=== PATIENT | female | born 1995 | race Caucasian/White ===

== ENCOUNTER → 2017-11-09 17:23 | Outpatient (REF) | payer OTHER, SELFPAY ==
[2017-11-12 18:35] LABS: Neisseria gonorrhoeae, NAA Negative (Negative)
== END ==
LOC: LAB 17:23
PROVIDERS: Visit Provider Nurse Practitioner Obstetrics & Gynecology
DX: Z20.2 Contact with and (suspected) exposure to infections with a predominantly sexual mode of transmission (principal)
CPT/HCPCS: 87491; 87591

== ENCOUNTER → 2017-12-23 14:23 | Outpatient (REF) | payer OTHER, SELFPAY ==
[2017-12-27 06:03] LABS: Neisseria gonorrhoeae, NAA Negative (Negative)
== END ==
LOC: LAB 14:23
PROVIDERS: Visit Provider Nurse Practitioner Obstetrics & Gynecology
DX: N89.8 Other specified noninflammatory disorders of vagina (principal)
CPT/HCPCS: 87491; 87591

== ENCOUNTER → 2018-09-19 16:59 | Outpatient (CLI) | payer OTHER, SELFPAY ==
[2018-09-22 17:11] LABS: Neisseria gonorrhoeae, NAA Negative (Negative)
== END ==
LOC: LAB 09-20 13:36 → LAB.DROPOF 09-21 15:02
PROVIDERS: Visit Provider Nurse Practitioner Obstetrics & Gynecology
DX: R10.9 Unspecified abdominal pain (principal)
CPT/HCPCS: 87491; 87591

== ENCOUNTER 2020-12-29 10:54 | Emergency (ER) | payer OTHER, SELFPAY ==
[2020-12-29] VITALS (8 sets, daily range): BP systolic 119–150; BP diastolic 78–101; PULSE 56–97; RESP 16–20; TEMP 36.6; O2SAT 96–99; BMI 18.4
--- NOTE | 2020-12-29 11:45 | US_ITS ---
PROCEDURE: US ABDOMEN LIMITED CLINICAL INDICATION: RUQ pain COMPARISON: No exams were available for comparison FINDINGS: PANCREAS: Unremarkable. No obvious mass or abnormal fluid collection. No ductal dilatation LIVER: No focal liver lesions demonstrated. Homogeneous echogenicity. No intrahepatic biliary ductal dilatation evident. There is appropriate direction of blood flow within a non dilated portal vein RIGHT KIDNEY: Unremarkable. Normal size and echogenicity. No hydronephrosis GALLBLADDER: No gallstones, gallbladder wall thickening, pericholecystic fluid, or biliary dilatation. IMPRESSION: Unremarkable limited abdominal ultrasound as detailed above disc Dictated by: Luis M Zeng MD 12/29/2020 13:25 Luis M Zeng MD in [place] 12/29/2020 13:25
--- NOTE | 2020-12-29 11:58 | HMH.EDGENADL ---
ED Disposition Clinical Impression: Epigastric abdominal pain Fatigue Qualifiers: Encounter type: initial encounter Disposition: Home, Self-Care Condition on Discharge: Good Instructions: Gastritis Additional Instructions: Follow-up with your GEEK SQUAD AGENT regarding recent medication changes and symptoms related to it. Recommend daily use of famotidine [id number] for acid reduction and follow-up with your PCP within 2 to 3 days. Please return to the ED for any new or worsening symptoms. Prescriptions: Ondansetron [Zofran 4mg ODT] 4 mg PO TIDP PRN #9 tab PRN Reason: Vomiting Transmission Status: Received by [id number] Referrals: Socorro Mallory [Primary Care Provider] - Time of Disposition: 14:31 - Critical Care Critical Care Time: No Attestation: On 12/29/20, the high probability of a clinically significant, sudden or life threatening deterioration of the following system(s) required my full and direct attention, intervention and personal management. The time I documented below is in addition to time spent performing reported procedures but includes the following listed in this critical care notation. Medical Decision Making - Medical Records Medical records reviewed: Yes: I reviewed the patient's medical records. - Brayden Inquiry Pt receiving controlled substance: No Vital Signs: 12/29/20 10:55 12/29/20 11:32 12/29/20 12:56 Temperature Temperature Source Pulse Rate 81 73 Pulse Rate [Left Radial] 97 H Respiratory Rate 20 Blood Pressure 129/97 H 139/91 H Blood Pressure [Right Arm] 150/101 H Blood Pressure Mean 109 107 Blood Pressure Mean [Right Arm] 117 Blood Pressure Source [Right Arm] Automatic Cuff Blood Pressure Position Blood Pressure Position [Right Arm] Sitting 02 Sat by Pulse Oximetry 97 99 99 Oxygen Delivery Method Room Air 12/29/20 13:00 12/29/20 13:45 12/29/20 14:01 Temperature Temperature Source Pulse Rate 81 56 L 68 Pulse Rate [Left Radial] Respiratory Rate Blood Pressure 124/94 H 119/78 123/83 Blood Pressure [Right Arm] Blood Pressure Mean 102 Blood Pressure Mean [Right Arm] Blood Pressure Source [Right Arm] Blood Pressure Position Blood Pressure Position [Right Arm] 02 Sat by Pulse Oximetry 97 98 98 Oxygen Delivery Method 12/29/20 14:30 12/29/20 14:47 Temperature 98 F Temperature Source Oral Pulse Rate 68 78 Pulse Rate [Left Radial] Respiratory Rate 16 Blood Pressure 131/99 H 135/99 H Blood Pressure [Right Arm] Blood Pressure Mean Blood Pressure Mean [Right Arm] Blood Pressure Source [Right Arm] Blood Pressure Position Sitting Blood Pressure Position [Right Arm] 02 Sat by Pulse Oximetry 96 Oxygen Delivery Method Room Air - Lab Data Lab Results 12/29/20 11:58: WBC 7.8, RBC 4.96, Hgb 14.9, Hct 46.2, MCV 93.0, MCH 30.0, MCHC 32.2, RDW 12.9, Plt Count 325, MPV 7.5, Neut % (Auto) 71.3, Lymph % (Auto) 21.3, [place] % (Auto) 5.8, Eos % (Auto) 1.0, Baso % (Auto) 0.5, Neut # (Auto) 5.6, Lymph # (Auto) 1.7, [place] # (Auto) 0.5, Eos # (Auto) 0.1, Baso # (Auto) 0.0 12/29/20 11:58: Sodium 142, Potassium 3.9, Chloride 108 H, Carbon Dioxide 23, Anion Gap 14.9, BUN 6 L, Creatinine 0.50 L, Estimated Creat Clear 130, Estimated GFR 153, Est GFR ( Amer) 185, Glucose 116 H, Calcium 9.8, Total Bilirubin 0.8, AST 26, ALT 22, Alkaline Phosphatase 48, Total Protein 8.8 H, Albumin 5.5 H, Globulin 3.3 H, Albumin/Globulin Ratio 1.7 12/29/20 11:58: Urine Color Yellow, Urine Appearance Clear, Urine pH 7.5, Ur Specific [place] 1.015, Urine Protein Negative, Urine Glucose (UA) Negative, Urine Ketones Negative, Urine Blood Negative, Urine Nitrate Negative, Urine Bilirubin Negative, Urine Urobilinogen 0.2, Ur Leukocyte Esterase Negative, Urine RBC None, Urine WBC 3-5, Ur Squamous Epith Cells Occasional, Urine Bacteria None 12/29/20 11:58: Urine HCG, Qual Negative 12/29/20 11:58: Lipase 184 Result diagr
[2020-12-29 12:06] LABS: Microscopic, Urine URINE MICROSCOPIC (MICROSCOPIC)
[2020-12-29 12:12] LABS: Basophils % 0.5 % (0.1-2.0); Chloride 108 mmol/L (98-107); Eosinophils # 0.1 K/mm3 (0.0-0.4); Hematocrit 46.2 % (37.0-47.0); Hemoglobin 14.9 g/dL (12.2-16.2); Lymphocytes # 1.7 K/mm3 (0.7-4.5); Lymphocytes % 21.3 % (10-50); Mean Corpuscular HGB Conc 32.2 g/dL (31.8-35.4); Mean Platelet Volume 7.5 fl (7.4-10.4); Monocytes # 0.5 K/mm3 (0.1-1.0); Monocytes % 5.8 % (1.7-9.3); Neutrophils # 5.6 K/mm3 (1.8-7.8); Neutrophils % 71.3 % (37.0-80.0); Platelet Count 325 K/mm3 (142-424); Red Blood Count 4.96 M/mm3 (4.20-5.40); Red Cell Distribution Width 12.9 % (11.5-17.5); Sodium 142 mmol/L (136-145); White Blood Count 7.8 K/mm3 (4.8-10.8)
[2020-12-29 12:13] LABS: Potassium 3.9 mmoL/L (3.5-5.1)
[2020-12-29 12:15] LABS: Alanine Aminotransferase 22 U/L (12-78); Alkaline Phosphatase 48 U/L (38-126); Anion Gap 14.9 mEq/L (5-15); Aspartate Amino Transferase 26 U/L (14-36); Bilirubin,Total 0.8 mg/dl (0.2-1.3); Blood Urea Nitrogen 6 mg/dl (7-17); Carbon Dioxide 23 mmol/L (22.0-30.0); Creatinine Clearance Estimated 130 mL/min (50-200); Estimated Glomerular Filt Rate 153 ml/min (>60); GFR (African American) 185 ML/MIN (>60)
[2020-12-29 12:16] LABS: Albumin Level 5.5 g/dl (3.5-5.0); Albumin/Globulin Ratio 1.7 (1.1-1.8); Appearance,Urine CLEAR (Clear); Bilirubin,Urine Negative (Negative); Blood, Urine Negative (Negative); Calcium 9.8 mg/dl (8.4-10.2); Color,Urine YELLOW (Yellow); Globulin 3.3 g/dL (1.3-3.2); Glucose 116 mg/dl (74-100); Glucose,Urine (UA) Negative (Negative); Ketones,Urine Negative (Negative); Leukocyte Esterase,Urine Negative (Negative); Lipase 184 U/L (23-300); Nitrate,Urine Negative (Negative); PH,Urine 7.5 (5.0-8.5); Protein,Urine Negative (Negative); Specific Gravity, Urine 1.015 (1.005-1.030); Total Protein,Serum 8.8 g/dl (6.3-8.2); Urobilinogen,Urine 0.2 EU/dl (0.2)
[2020-12-29 12:17] LABS: Urine Pregnancy, HCG Qual. Negative (Negative)
[2020-12-29 12:33] LABS: Squamous Epithelial Cell,Urine Occasional #/hpf (0-5)
== END 2020-12-29 14:48 | disposition home or self-care (01) ==
PROVIDERS: Emergency Provider Student in an Organized Health Care Education/Training Program; PCP Physician Assistant
DX: R10.13 Epigastric pain (principal); R53.83 Other fatigue; F41.9 Anxiety disorder, unspecified; F17.210 Nicotine dependence, cigarettes, uncomplicated
CPT/HCPCS: 76705; 80053; 81001; 81025; 83690; 85025; 96365; 99283; J2405

== ENCOUNTER 2021-03-17 20:03 | Emergency (ER) | payer OTHER, SELFPAY ==
[2021-03-17 20:25] VITALS: BP 122/85; PULSE 98; RESP 17; TEMP 36.9; O2SAT 100; BMI 17.6
[2021-03-17 20:35] VITALS: BMI 17.6
[2021-03-17 20:41] LABS: Microscopic, Urine URINE MICROSCOPIC (MICROSCOPIC)
[2021-03-17 21:11] LABS: Urine Pregnancy, HCG Qual. Positive (Negative)
--- NOTE | 2021-03-17 21:16 | US_ITS ---
PROCEDURE INFORMATION: Exam: US , Transvaginal Exam date and time: 03/17/2021 9:16 PM Age: 25 years old Clinical indication: Lmp or gestational age (in weeks): Lmp February 15, 2021; Other: Vaginal bleeding and cramping; ; Patient HX: Positive urine preg test. Beta hcg 181. Bleeding and cramping all day. ; Additional info: Bleeding 4 weeks TECHNIQUE: Imaging protocol: Real-time transvaginal obstetrical ultrasound of the maternal pelvis with image documentation. Transvaginal imaging was used for better evaluation of the fetus, adnexa, and/or cervix. [place] [facility] [place]/05/[place] 2:28 PM FINDINGS: Gestation: No IUP. Normal appearance of the uterus. Endometrial thickness is normal. Normal appearance of the bilateral ovaries. Endometrial thickness is 3 mm. IMPRESSION: Unremarkable limited exam. Lack of IUP compatible with too early to see, missed , or potentially ectopic. Clinical correlation recommended.
[2021-03-17 21:30] LABS: Lipase 132 U/L (23-300)
[2021-03-17 21:31] LABS: Alanine Aminotransferase 26 U/L (12-78); Albumin Level 4.9 g/dl (3.5-5.0); Albumin/Globulin Ratio 1.8 (1.1-1.8); Alkaline Phosphatase 50 U/L (38-126); Amylase 65 U/L (30-110); Anion Gap 14.6 mEq/L (5-15); Aspartate Amino Transferase 26 U/L (14-36); Bilirubin,Total 0.5 mg/dl (0.2-1.3); Blood Urea Nitrogen 6 mg/dl (7-17); Calcium 9.1 mg/dl (8.4-10.2); Carbon Dioxide 23 mmol/L (22.0-30.0); Chloride 106 mmol/L (98-107); Creatinine Clearance Estimated 104 mL/min (50-200); Estimated Glomerular Filt Rate 124 ml/min (>60); GFR (African American) 150 ML/MIN (>60); Globulin 2.8 g/dL (1.3-3.2); Glucose 97 mg/dl (74-100); Potassium 3.6 mmoL/L (3.5-5.1); Sodium 140 mmol/L (136-145); Total Protein,Serum 7.7 g/dl (6.3-8.2)
[2021-03-17 21:33] LABS: Basophils % 0.2 % (0.1-2.0); Eosinophils # 0.1 K/mm3 (0.0-0.4); Eosinophils % 0.4 % (0.1-12.0); Hemoglobin 12.7 g/dL (12.2-16.2); Lymphocytes # 1.8 K/mm3 (0.7-4.5); Lymphocytes % 12.1 % (10-50); Mean Corpuscular HGB Conc 31.8 g/dL (31.8-35.4); Mean Corpuscular Hemoglobin 29.4 pg (27.0-31.2); Mean Corpuscular Volume 92.4 fl (81-99); Mean Platelet Volume 7.4 fl (7.4-10.4); Monocytes # 0.7 K/mm3 (0.1-1.0); Monocytes % 4.4 % (1.7-9.3); Neutrophils # 12.4 K/mm3 (1.8-7.8); Neutrophils % 82.8 % (37.0-80.0); Platelet Count 287 K/mm3 (142-424); Red Blood Count 4.32 M/mm3 (4.20-5.40); White Blood Count 14.9 K/mm3 (4.8-10.8)
[2021-03-17 21:37] LABS: C-Reactive Protein < 0.3 mg/L (0-4)
[2021-03-17 21:47] LABS: HCG,Quantitative 181 mIU/ml (0-5.42); Procalcitonin 0.044 ng/mL (0.0-2.0)
--- NOTE | 2021-03-17 22:11 | HMH.EDPREG ---
ED Disposition Clinical Impression: Qualifiers: Weeks of gestation: less than 8 weeks Qualified Code(s): Z3A.01 - Less than 8 weeks gestation of Disposition: Home, Self-Care Condition on Discharge: Good Instructions: DI for Vaginal Bleeding Additional Instructions: call ob in am Referrals: Socorro Mallory [Primary Care Provider] - Antonio Grijalva MD [Staff Physician] - Ana Harding MD [Staff Physician] - - Critical Care Critical Care Time: No Attestation: On 03/17/21, the high probability of a clinically significant, sudden or life threatening deterioration of the following system(s) required my full and direct attention, intervention and personal management. The time I documented below is in addition to time spent performing reported procedures but includes the following listed in this critical care notation. Medical Decision Making - Medical Records Medical records reviewed: Yes: I reviewed the patient's medical records. - Brayden Inquiry Pt receiving controlled substance: No Vital Signs: 03/17/21 20:25 Temperature 98.4 F Temperature Source Oral Pulse Rate [Right] 98 H Respiratory Rate 17 Blood Pressure [Right Arm] 122/85 Blood Pressure Mean [Right Arm] 97 Blood Pressure Source [Right Arm] Automatic Cuff 02 Sat by Pulse Oximetry 100 Oxygen Delivery Method Room Air - Lab Data Lab results reviewed: Yes: I reviewed the patient's lab results. Lab Results 03/17/21 20:13: Urine Color Yellow, Urine Appearance Clear, Urine pH 7.0, Ur Specific [place] 1.015, Urine Protein Negative, Urine Glucose (UA) Negative, Urine Ketones Negative, Urine Blood 2+, Urine Nitrate Negative, Urine Bilirubin Negative, Urine Urobilinogen 0.2, Ur Leukocyte Esterase Negative, Urine RBC 3-5, Urine WBC Occasional, Ur Squamous Epith Cells 3-5, Urine Bacteria None 03/17/21 20:13: Urine HCG, Qual Positive 03/17/21 21:10: WBC 14.9 H, RBC 4.32, Hgb 12.7, Hct 40.0, MCV 92.4, MCH 29.4, MCHC 31.8, RDW 12.0, Plt Count 287, MPV 7.4, Neut % (Auto) 82.8 H, Lymph % (Auto) 12.1, [place] % (Auto) 4.4, Eos % (Auto) 0.4, Baso % (Auto) 0.2, Neut # (Auto) 12.4 H, Lymph # (Auto) 1.8, [place] # (Auto) 0.7, Eos # (Auto) 0.1, Baso # (Auto) 0.0, ESR 19 03/17/21 21:10: Sodium 140, Potassium 3.6, Chloride 106, Carbon Dioxide 23, Anion Gap 14.6, BUN 6 L, Creatinine 0.60, Estimated Creat Clear 104, Estimated GFR 124, Est GFR ( Amer) 150, Glucose 97, Calcium 9.1, Total Bilirubin 0.5, AST 26, ALT 26, Alkaline Phosphatase 50, C-Reactive Protein < 0.3, Total Protein 7.7, Albumin 4.9, Globulin 2.8, Albumin/Globulin Ratio 1.8, Amylase 65, Procalcitonin 0.044, HCG, Quant 181 H 03/17/21 21:10: Lipase 132 Result diagrams: 03/17/21 21:10 03/17/21 21:10 Orders (Tests/Meds): ED MEDICATIONS Generic Name Dose Route Start Last Admin Trade Name Freq PRN Reason Stop Dose Admin Sodium Chloride 1,000 mls @ 999 mls/hr 03/17/21 21:30 03/17/21 21:32 Sod Chlor 0.9% 1000ml Bag IV 03/17/21 22:30 999 mls/hr .Q1H1M RAHEL Administration Rho Immune Globulin 0 unit 03/17/21 21:16 Rho(D) Immune Globulin 1,500 Unit Syringe IM 04/16/21 21:15 NEEDED PRN For Rh Pre/ scrn resu ORDERS Category Date Time Status Rhogam Stat BBK 03/17/21 21:34 Received - US Data US Images: Pelvis ED US Reviewed: Yes: I have viewed radiologist's interpretation Preliminary Findings: Normal/NAD (too early) Medical Decision Narrative: too early to determine will ask pt to call ob in am HPI - General Chief complaint: Vaginal Bleeding Stated complaint: 4 weeks preg abdominal pain and bleeding Time Seen by Provider: 03/17/21 20:50 Mode of Arrival: Family Vehicle Source of Information: Patient, Significant Other, Medical Record Limitations: No Limitations Description of Symptoms (Recalled from ER Triage Doc. by RN): Pt c/o low ABD/suprapubic pain that radiates to bilateral low back that began ~1330 today. Pt report s
[2021-03-17 22:20] LABS: Erythrocyte Sedimentation Rate 19 mm/hr (0-20)
[2021-03-17 22:30] LABS: Appearance,Urine CLEAR (Clear); Bilirubin,Urine Negative (Negative); Blood, Urine 2+ (Negative); Color,Urine YELLOW (Yellow); Glucose,Urine (UA) Negative (Negative); Ketones,Urine Negative (Negative); Leukocyte Esterase,Urine Negative (Negative); Nitrate,Urine Negative (Negative); Protein,Urine Negative (Negative); Specific Gravity, Urine 1.015 (1.005-1.030); Urobilinogen,Urine 0.2 EU/dl (0.2)
[2021-03-17 22:33] LABS: WBC,Urine Occasional #/hpf (0-3)
[2021-03-17 23:30] VITALS: BP 130/78; PULSE 92; RESP 16; TEMP 36.9; O2SAT 98
== END 2021-03-17 23:33 | disposition home or self-care (01) ==
PROVIDERS: Emergency Provider Emergency Medicine; PCP Physician Assistant
DX: O20.9 Hemorrhage in early pregnancy, unspecified (principal); Z3A.01 Less than 8 weeks gestation of pregnancy; F17.210 Nicotine dependence, cigarettes, uncomplicated
CPT/HCPCS: 36415; 76817; 80053; 81001; 81025; 82150; 83690; 84145; 84702; 85025; 85651; 86140; 96365; 99282; 99283

== ENCOUNTER → 2021-03-19 09:25 | Outpatient (CLI) | payer OTHER, SELFPAY ==
[2021-03-19 11:16] LABS: HCG,Quantitative 82 mIU/ml (0-5.42)
== END ==
PROVIDERS: Visit Provider Nurse Practitioner Obstetrics & Gynecology
DX: Z34.90 Encounter for supervision of normal pregnancy, unspecified, unspecified trimester (principal)
CPT/HCPCS: 36415; 84702

== ENCOUNTER 2021-04-22 08:45 | Emergency (ER) | payer OTHER, SELFPAY ==
[2021-04-22 08:55] VITALS: PULSE 93; RESP 18; TEMP 36.8; O2SAT 99; BMI 19.0
[2021-04-22 09:05] VITALS: BP 133/87; PULSE 106; RESP 16; TEMP 36.9; O2SAT 100; BMI 18.4
--- NOTE | 2021-04-22 09:21 | XR_ITS ---
PROCEDURE: XR KNEE LT 3V CLINICAL INDICATION: pain COMPARISON: No exams were available for comparison FINDINGS: No fracture or dislocation. No lytic or blastic change. There is normal mineralization. The joint spaces are well-preserved. No significant degenerative/arthritic changes. No erosive changes evident. Other findings:None. IMPRESSION: No acute findings. Dictated by: Luis M Zeng MD 04/22/2021 11:15 Luis M Zeng MD in [place] 04/22/2021 11:15
--- NOTE | 2021-04-22 10:19 | HMH.EDUTC ---
[facility] [place] Clinical Impression: Contusion of left knee Qualifiers: Encounter type: initial encounter Qualified Code(s): S80.02XA - Contusion of left knee, initial encounter Disposition: Home, Self-Care Condition on Discharge: Good Instructions: DI for Contusion, DI for Knee Pain Additional Instructions: Rest the extremity, apply ice for 15 minutes as tolerated three or four times per day, Elevate the extremity as tolerated while you are resting. Take ibuprofen for pain. I sent in a prescription to your pharmacy. Follow up with Dr. Barrera (orthopedics) if you continue to have symptoms after a couple days of resting and taking ibuprofen. I put in a referral but you need to call his office and schedule an appointment. Follow up with your regular doctor. GO TO THE ER FOR ANY WORSENING SYMPTOMS Prescriptions: Ibuprofen [Ibuprofen 600mg Tablet] 600 mg PO Q6HP PRN #30 tab PRN Reason: Mild Pain Transmission Status: Received by [facility] [place] [id number] Referrals: Socorro Mallory [Primary Care Provider] - Luis Barrera MD [Staff Physician] - Time of Disposition: 10:21 Medical Decision Making - Medical Records Medical records reviewed: No: I reviewed the patient's medical records. - Brayden Inquiry Pt receiving controlled substance: No Vital Signs: 04/22/21 08:55 04/22/21 09:05 04/22/21 10:27 Temperature 98.2 F 98.4 F 98.5 F Temperature Source Oral Oral Pulse Rate 100 H Pulse Rate [Right Radial] 93 H 106 H Respiratory Rate 18 16 14 Blood Pressure 129/85 Blood Pressure [Right Arm] 133/87 Blood Pressure Mean [Right Arm] 102 02 Sat by Pulse Oximetry 99 100 Oxygen Delivery Method Room Air - Radiology Data #1 Image(s): Knee Image Reviewed: Yes I reviewed the patient's radiology image, Yes I have reviewed radiologist's interpretation Preliminary Findings: No Fracture Seen PROCEDURE: XR KNEE LT 3V CLINICAL INDICATION: pain COMPARISON: No exams were available for comparison FINDINGS: No fracture or dislocation. No lytic or blastic change. There is normal mineralization. The joint spaces are well-preserved. No significant degenerative/arthritic changes. No erosive changes evident. Other findings:None. IMPRESSION: No acute findings. Dictated by: Luis M Zeng MD 04/22/2021 11:15 Luis M Zeng MD in [place] 04/22/2021 11:15 [facility] [place] - General Stated complaint: AO [id number] @0700 injured r knee Time Seen by Provider: 04/22/21 09:05 Mode of Arrival: Ambulatory Source of Information: Patient Limitations: No Limitations Description of Symptoms (Recalled from Triage Doc. by RN): pt states he hit her L knee cap on her bedframe last . and felt a popping sensation. HEENT Symptoms (Recalled from RN notes): No Resp Symptoms (Recalled from RN notes): No Skin Symptoms (Recalled from RN notes): No MS Symptoms (Recalled from RN notes): Yes (L knee pain) Functional Status (Recalled from RN notes): na - History of Present Illness Provider Complaint: She accidentily bumper her left knee into her bed frame last night. She has had left knee pain and swelling since then. Walking and bearing weight makes her pain worse. The knee has not felt unstable. - Related Data Home Medications Medication Instructions Recorded Confirmed omeprazole 10 mg capsule,delayed 10 mg PO DAILY 12/17/20 03/19/21 release hydroxyzine pamoate 25 mg capsule 25 mg PO cap 03/19/21 03/19/21 Previous Rx's Medication Instructions Recorded vits no.126-ferrous fum 1 tab PO DAILY #30 tab 12/17/20 28 mg iron-folic acid 800 mcg tablet bupropion HCl 150 mg 24 hr tablet, 150 mg PO DAILY #30 tab 03/19/21 extended release Ibuprofen [Ibuprofen 600mg 600 mg PO Q6HP PRN #30 tab 04/22/21 Tablet] Allergies Allergy/AdvReac Type Severity Reaction Status Date / Time No Known Drug Intolerances Allergy Unknown NA Verified 04/22/21 09:04 - Worker's Comp Is this a
[2021-04-22 10:27] VITALS: BP 129/85; PULSE 100; RESP 14; TEMP 36.9
== END 2021-04-22 10:35 | disposition home or self-care (01) ==
LOC: ER 08:50 → UTC 08:57
PROVIDERS: Emergency Provider Nurse Practitioner Family; PCP Physician Assistant
DX: S80.02XA Contusion of left knee, initial encounter (principal); W22.03XA Walked into furniture, initial encounter; Y92.013 Bedroom of single-family (private) house as the place of occurrence of the external cause; F41.9 Anxiety disorder, unspecified
CPT/HCPCS: 29505; 73562; 99202; G0463

== ENCOUNTER 2021-07-28 10:14 | Emergency (ER) | payer OTHER, SELFPAY ==
[2021-07-28 11:28] VITALS: BP 126/87; PULSE 82; RESP 18; TEMP 36.8; O2SAT 98; BMI 18.3
--- NOTE | 2021-07-28 11:51 | HMH.EDUTC ---
[facility] [place] Clinical Impression: Ear pain Disposition: Home, Self-Care Condition on Discharge: Good Instructions: DI for Ear Pain-Adult, Fluticasone Nasal [place] Additional Instructions: *Monitor Temp, Over the counter Motrin or Tylenol as directed/as needed Tylenol every 4 hours and Motrin every 6 hours (as long as your family doctor has told you that you can take it) for fever or pain. and straight to ER if unable to lower temp less than 101.0 after medication given *Sleep elevated *Humidifier/Vaporizer *Flonase 2 sprays in each nostril daily but be aware that it may take 2-3 days before you notice improvement Follow up IMMEDIATELY for new or worsening symptoms or no Noticeable improvement over the next 48-72 hours. 911 for difficulty breathing or swallowing Prescriptions: Fluticasone Propionate [Flonase 50mcg nasal spray 16gm] 1 spr NS DAILY #1 each Transmission Status: Pending to [id number] Referrals: Socorro Mallory [Primary Care Provider] - As needed Time of Disposition: 11:59 Medical Decision Making - Brayden Inquiry Pt receiving controlled substance: No Brayden was queried for this patient: No Vital Signs: 07/28/21 11:28 Temperature 98.2 F Temperature Source Oral Pulse Rate [Left] 82 Respiratory Rate 18 Blood Pressure [Right Arm] 126/87 Blood Pressure Mean [Right Arm] 100 02 Sat by Pulse Oximetry 98 [facility] [place] - General Stated complaint: lt ear pain Time Seen by Provider: 07/28/21 11:51 Mode of Arrival: Ambulatory Source of Information: Patient Limitations: No Limitations Description of Symptoms (Recalled from Triage Doc. by RN): pt c/o bilateral ear aches x2 days. HEENT Symptoms (Recalled from RN notes): Yes (bilateral ear aches) Resp Symptoms (Recalled from RN notes): No Skin Symptoms (Recalled from RN notes): No MS Symptoms (Recalled from RN notes): No Functional Status (Recalled from RN notes): na - History of Present Illness Provider Complaint: Patient states that she has been having pain in her left ear States that she has chronic ear problems so she her daughter was having pain in her ears so she came in to get checked too - Related Data Home Medications Medication Instructions Recorded Confirmed omeprazole 10 mg capsule,delayed 10 mg PO DAILY 12/17/20 03/19/21 release hydroxyzine pamoate 25 mg capsule 25 mg PO cap 03/19/21 03/19/21 Previous Rx's Medication Instructions Recorded vits no.126-ferrous fum 1 tab PO DAILY #30 tab 12/17/20 28 mg iron-folic acid 800 mcg tablet bupropion HCl 150 mg 24 hr tablet, 150 mg PO DAILY #30 tab 03/19/21 extended release Ibuprofen [Ibuprofen 600mg 600 mg PO Q6HP PRN #30 tab 04/22/21 Tablet] Fluticasone Propionate [Flonase 1 spr NS DAILY #1 each 07/28/21 50mcg nasal spray 16gm] Allergies Allergy/AdvReac Type Severity Reaction Status Date / Time No Known Drug Intolerances Allergy Unknown NA Verified 04/22/21 09:04 - Worker's Comp Is this a Worker's Comp case?: No [facility] History - Hepatitis A Screen Drug use history?: No High risk sexual behaviors?: No History of sexually transmitted infection?: No Currently employed?: No Childcare worker?: No Do you have indoor plumbing?: Yes Do you have electricity?: Yes Attestation statement:: This patient has been screened for Hepatitis A risk factors. 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
[2021-07-28 12:10] VITALS: BP 126/87; PULSE 82; RESP 18; TEMP 36.8
== END 2021-07-28 12:40 | disposition home or self-care (01) ==
PROVIDERS: Emergency Provider Nurse Practitioner; PCP Physician Assistant
DX: H92.02 Otalgia, left ear (principal); F41.9 Anxiety disorder, unspecified; F17.210 Nicotine dependence, cigarettes, uncomplicated
CPT/HCPCS: 99202; G0463

== ENCOUNTER → 2021-09-22 10:25 | Outpatient (CLI) | payer OTHER, SELFPAY ==
[2021-09-22 12:40] LABS: Chloride 102 mmol/L (98-107); Sodium 135 mmol/L (136-145)
[2021-09-22 12:41] LABS: Potassium 3.6 mmoL/L (3.5-5.1)
[2021-09-22 12:43] LABS: Basophils % 0.4 % (0.1-2.0); Blood Urea Nitrogen 8 mg/dl (7-17); Eosinophils % 0.2 % (0.1-12.0); Hematocrit 42.7 % (37.0-47.0); Hemoglobin 13.4 g/dL (12.2-16.2); Lymphocytes # 0.3 K/mm3 (0.7-4.5); Lymphocytes % 10.8 % (10-50); Mean Corpuscular HGB Conc 31.4 g/dL (31.8-35.4); Mean Corpuscular Hemoglobin 30.6 pg (27.0-31.2); Mean Corpuscular Volume 97.4 fl (81-99); Mean Platelet Volume 8.3 fl (7.4-10.4); Monocytes # 0.4 K/mm3 (0.1-1.0); Monocytes % 12.9 % (1.7-9.3); Neutrophils # 2.4 K/mm3 (1.8-7.8); Neutrophils % 75.7 % (37.0-80.0); Platelet Count 231 K/mm3 (142-424); Red Blood Count 4.38 M/mm3 (4.20-5.40); Red Cell Distribution Width 13.5 % (11.5-17.5); White Blood Count 3.1 K/mm3 (4.8-10.8)
[2021-09-22 12:44] LABS: Anion Gap 11.6 mEq/L (5-15); Calcium 9.3 mg/dl (8.4-10.2); Carbon Dioxide 25 mmol/L (22.0-30.0); Estimated Glomerular Filt Rate 153 ml/min (>60); GFR (African American) 185 ML/MIN (>60); Glucose 88 mg/dl (74-100)
[2021-09-22 13:24] LABS: HCG,Quantitative 28230 mIU/ml (0-5.42)
== END ==
PROVIDERS: Visit Provider Nurse Practitioner Obstetrics & Gynecology
DX: Z01.818 Encounter for other preprocedural examination (principal); U07.1 COVID-19; N92.6 Irregular menstruation, unspecified; O02.1 Missed abortion
CPT/HCPCS: 36415; 80048; 84702; 85025; 86850; C9803; U0003; U0005

== ENCOUNTER 2021-09-23 12:17 | Day surgery (SDC) | payer OTHER, SELFPAY ==
[2021-09-22 13:04] VITALS: BMI 18.0
[2021-09-23] VITALS (9 sets, daily range): BP systolic 120–144; BP diastolic 68–105; PULSE 70–102; RESP 16–18; TEMP 36.1–36.9; O2SAT 96–100
--- NOTE | 2021-09-23 14:49 | HMH.OPNOTE ---
Date of procedure: 09/23/21 Pre-op Diagnosis:: Missed Post-op Diagnosis:: Missed Procedure performed:: Dilation and evacuation with [place] suction Surgeon:: Antonio Grijalva MD LIFE ADVISOR:: Other (Gregory Bray) Anesthesia: LMA Estimated blood loss (mL): 100 Clinical Note:: She is a 25-year-old at 7 weeks gestational age with a missed . Ultrasound in my office showed no fetus but a large gestational sac with blood in the lower segment. As result of that she was offered dilation evacuation. The entire sac was 4 cm in size. Operative findings:: She had an anteverted bulky uterus. The size was consistent with the 7 weeks gestational age. Operative note:: She was taken to the operating room where LMA anesthesia was found to be adequate. She is prepped and draped normal sterile fashion in the lithotomy position. Weighted speculum placed in vagina and the anterior lip of the cervix was grasped with a tenaculum. Rodrigez dilators used to dilate the cervix up to approximately 9 mm. Then using a 9 mm curved [place] suction curette I evacuated the uterine contents. This was followed by gentle curettage. She tolerated the procedure well and was taken to the recovery room in excellent condition in excellent condition. All sponge, instrument and needle counts were correct. The estimated blood loss was approximately 100 cc. Condition: stable Disposition: PACU Specimens:: Products of conception Complications:: None
--- NOTE | 2021-09-23 15:11 | P.PN_ITS ---
[facility] Anesthesia Checklist - Patient Identification Patient Identification: Arm Band, Verbal (Name & ) - Structural Data Admitted From: Home Planned Operative Procedure/s: D&E Consent for Planned Operative Procedure(s) Verified: Yes Verified Documents: Surgical Consent - NPO Status Verified Time NPO: 00:00 - Chart Verification Results Verified: CBC - Additional verifications Anesthesia Reactions: No Hx Blood Transfusions: No Blood Transfusion Reaction: No - Airway Assessment C-Spine Mobility Assessed: Yes TMJ Mobility Assessed: Yes Dentition: Poor Dentition - Neurological Assessment Level of Consciousness: Awake, Alert, Appropriate - Anesthesia Plan Anesthesia Risk discussed: Yes Anesthesia Plan: Verified Anesthesia Type: General [facility] History I have reviewed the patient's past medical history: Yes Medical History: Reports:: Anxiety Denies:: Cancer, Depression, Diabetes Mellitus Type 1, Diabetes Mellitus Type 2, Internal Pacemaker, MRSA, Seizures *Have you ever received a pneumonia vaccine?: No *Have you received a flu vaccine this season?: No Other Medical History: Denies: Blood Transfusion Reaction Anesthesia experience/problems:: none Other Surgeries: Yes: . No: Pacemaker Amputation: No Fractures: No - *Social History Last grade of school completed: High school graduate Smoking Status: Former smoker Tobacco Type: cigarettes # Packs/Day (cigarettes): 1 #Yrs smoked (if former smoker): 8 Smoking End Date: 08/14/21 Alcohol Intake: never Alcohol Intake Frequency:: other Substance Use Type: denies use *Occupational Status:: unemployed Housing: house Household Members: family *Travel in the last 8 weeks: None - Psychiatric History Pschychiatric History:: Reports:: Anxiety Denies:: Depression Family Hx:: Coronary Artery Disease, Diabetes, Hypertension, Stroke 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
--- NOTE | 2021-09-23 15:13 | P.PN_ITS ---
[facility] Anesthesia Record Part I Intake, IV Amount: 500 Estimated blood loss (mL): 100 Urine output (mL): 0 Blood Pressure: 140/92 SaO2: 99 Pulse Rate: 84 Respiratory Rate: 18 Temperature: 97.0 F Patient is:: Drowsy Stable to PACU at:: 15:10
== END 2021-09-23 16:00 | disposition home or self-care (01) ==
LOC: OR 12:19
PROVIDERS: PCP Physician Assistant; Visit Provider Nurse Practitioner Obstetrics & Gynecology
PROC: (CPT 59812; principal; 2021-09-23 14:00)
DX: O02.1 Missed abortion (principal); F41.9 Anxiety disorder, unspecified; Z82.49 Family history of ischemic heart disease and other diseases of the circulatory system; Z83.3 Family history of diabetes mellitus; Z82.3 Family history of stroke
CPT/HCPCS: 59812; 96374

== ENCOUNTER → 2022-03-03 10:54 | Outpatient (CLI) | payer OTHER, SELFPAY ==
[2022-03-03 12:07] LABS: HCG,Quantitative 554 mIU/ml (0-5.42)
== END ==
PROVIDERS: Nurse Practitioner Obstetrics & Gynecology; Visit Provider Obstetrics & Gynecology
DX: Z32.01 Encounter for pregnancy test, result positive (principal); O02.1 Missed abortion
CPT/HCPCS: 36415; 84702; 86900; 86901

== ENCOUNTER 2022-10-10 16:49 | Emergency (ER) | payer OTHER, SELFPAY ==
--- NOTE | 2022-10-10 17:01 | HMH.EDAMS ---
Discharge Plan Disposition Chief Complaint: Abdominal Pain Prescriptions Prescriptions: No Action omeprazole 20 mg capsule,delayed release(DR/EC) 20 mg PO hydroxyzine pamoate 25 mg capsule 25 mg PO DAILY Label Comments: TAKE 1 CAPSULE BY MOUTH TWICE DAILY NEEDED FOR ANXIETY vit [id number] 1 EACH tablet 1 tab PO DAILY oxycodone-acetaminophen 1 EACH tablet 1 tab PO Q4-6H PRN (Reason: Severe Pain) Qty: 6 0RF ibuprofen 600 MG tablet 600 mg PO Q6HP PRN (Reason: Mild Pain) Qty: 30 0RF Referrals Follow up/Referrals: Provider,Referral, MD [Primary Care Provider] - See instructions Instructions Patient Instructions: DI for Acute Abdominal Pain Discharge ED Provider: Toribio Cummins Altered Mental Status HPI General Chief Complaint: Abdominal Pain Stated Complaint: Sever Abd Pain Time Seen by Provider: 10/10/22 16:58 History of Present Illness HPI narrative: The patient presents to the emergency department complaining of lower abdominal pain. She states that she had her last menstrual period on August 31 and has missed a period and thinks she may be . She denies any bleeding. She does feel nauseated without vomiting and denies any diarrhea or fevers. Related Data Home Medications Medication Instructions Recorded Confirmed hydroxyzine pamoate 25 mg capsule 25 mg PO DAILY Anxiety 03/19/21 03/03/22 vits no.126-ferrous fum 1 tab PO DAILY Supplement 09/22/21 03/03/22 28 mg iron-folic acid 800 mcg tablet omeprazole 20 mg capsule,delayed 20 mg PO 03/03/22 03/03/22 release Previous Rx's Medication Instructions Recorded ibuprofen 600 mg tablet 600 mg PO Q6HP PRN Mild Pain #30 04/22/21 tabs oxycodone-acetaminophen 5 mg-325 1 tab PO Q4-6H PRN Severe Pain #6 09/23/21 mg tablet tabs Allergies Allergy/AdvReac Type Severity Reaction Status Date / Time No Known Drug Intolerances Allergy Unknown NA Verified 10/07/21 09:03 [facility] Disclaimer: The information contained in this section may have been updated after the patient was seen, as this information can be updated by other users. Social History Smoking Status: Never smoker second hand exposure: No alcohol intake: never substance use type: denies use current occupational status: unemployed Travel in the last 8 weeks: None household members: family housing: house current occupational exposures/hazards: No caffeine: Yes ROS Obtained: Yes All systems reviewed & no additional complaints except as documented Physical Exam General General appearance: alert Head Head exam: atraumatic Eye Eye exam: Present normal appearance; Absent scleral icterus or jaundice ENT ENT exam: Present normal exam Neck Neck exam: Present normal inspection and full ROM; Absent tenderness or meningismus Chest Chest inspection: Present normal inspection and symmetric chest wall rise; Absent tenderness Respiratory Respiratory exam: Present normal lung sounds bilaterally; Absent respiratory distress or accessory muscle use Cardiovascular Cardiovascular exam: Present regular rate, normal rhythm and normal heart sounds Abdominal Exam Abdominal exam: Present soft and normal bowel sounds; Absent distention, tenderness, heel tap sign, Gallardo's sign, Rovsing's sign, tenderness at McBurney's Point or mass External exam: Present normal external exam Speculum exam: Present normal speculum exam Bimanual exam: Present adnexal tenderness (Mild right-sided); Absent cervical motion tenderness Expanded Exam OB exam: Absent tissue present in vagina or vulvar erythema External exam: Present normal Speculum exam: Present cervical OS closed Extremities Exam Extremities exam: Present normal inspection and full ROM Back Exam Back exam: Present normal inspection; Absent tenderness, CVA tenderness (R) or CVA tenderness (L) Neurological Exam Neurological exam: Present alert and oriented X3 Ps
[2022-10-10 17:04] VITALS: BP 123/95; PULSE 89; RESP 14; TEMP 36.7; O2SAT 100; BMI 20.3
[2022-10-10 17:12] LABS: Microscopic, Urine URINE MICROSCOPIC (MICROSCOPIC)
[2022-10-10 17:29] LABS: Basophils # 0.1 K/mm3 (0-0.2); Basophils % 0.9 % (0.1-2.0); Chloride 108 mmol/L (98-107); Eosinophils # 0.1 K/mm3 (0.0-0.4); Eosinophils % 1.3 % (0.1-12.0); Hematocrit 42.1 % (37.0-47.0); Hemoglobin 13.8 g/dL (12.2-16.2); Lymphocytes # 2.4 K/mm3 (0.7-4.5); Lymphocytes % 24.4 % (10-50); Mean Corpuscular HGB Conc 32.8 g/dL (31.8-35.4); Mean Corpuscular Hemoglobin 29.9 pg (27.0-31.2); Mean Corpuscular Volume 91.4 fl (81-99); Mean Platelet Volume 7.7 fl (7.4-10.4); Monocytes # 0.5 K/mm3 (0.1-1.0); Monocytes % 4.7 % (1.7-9.3); Neutrophils # 6.7 K/mm3 (1.8-7.8); Neutrophils % 68.7 % (37.0-80.0); Platelet Count 352 K/mm3 (142-424); Potassium 3.3 mmoL/L (3.5-5.1); Red Blood Count 4.61 M/mm3 (4.20-5.40); Red Cell Distribution Width 13.7 % (11.5-17.5); Sodium 140 mmol/L (136-145); White Blood Count 9.8 K/mm3 (4.8-10.8)
[2022-10-10 17:32] LABS: Alanine Aminotransferase 16 U/L (12-78); Alkaline Phosphatase 40 U/L (38-126); Anion Gap 10.3 mEq/L (5-15); Aspartate Amino Transferase 25 U/L (14-36); Bilirubin,Total 0.3 mg/dl (0.2-1.3); Blood Urea Nitrogen 7 mg/dl (7-17); Calcium 8.7 mg/dl (8.4-10.2); Carbon Dioxide 25 mmol/L (22.0-30.0); Creatinine Clearance Estimated 143 mL/min (50-200); Estimated Glomerular Filt Rate 152 ml/min (>60); GFR (African American) 183 ML/MIN (>60); Glucose 98 mg/dl (74-100); Lipase 222 U/L (23-300)
[2022-10-10 17:33] LABS: Appearance,Urine CLEAR (Clear); Bilirubin,Urine Negative (Negative); Blood, Urine Negative (Negative); Color,Urine YELLOW (Yellow); Glucose,Urine (UA) Negative (Negative); Ketones,Urine Negative (Negative); Leukocyte Esterase,Urine Negative (Negative); Nitrate,Urine Negative (Negative); Protein,Urine Negative (Negative); Specific Gravity, Urine >= 1.030 (1.005-1.030); Urobilinogen,Urine 0.2 EU/dl (0.2)
[2022-10-10 17:33] LABS: Albumin Level 4.6 g/dl (3.5-5.0); Albumin/Globulin Ratio 1.4 (1.1-1.8); Globulin 3.3 g/dL (1.3-3.2); Total Protein,Serum 7.9 g/dl (6.3-8.2)
[2022-10-10 17:35] LABS: HCG Qualitative, Serum Positive (Negative)
--- NOTE | 2022-10-10 17:44 | US_ITS ---
PROCEDURE INFORMATION: Exam: US , Transvaginal Exam date and time: 10/10/2022 6:15 PM Age: 26 years old Clinical indication: complicated by abdominal or pelvic pain; Right lower quadrant; First trimester (<14 weeks 0 days); Gestational age or lmp: 6w3d; ; Patient HX: Rlq pain-- pos test-- [facility] [place] [id number]--; Additional info: . Pelvic pain, R/O ectopic TECHNIQUE: Imaging protocol: Real-time transvaginal obstetrical ultrasound of the maternal pelvis with image documentation. Transvaginal imaging was used for better evaluation of the fetus, adnexa, and/or cervix. COMPARISON: US OB TRANSVAGINAL 03/17/2021 9:39 PM FINDINGS: Gestation: There is an intrauterine gestational sac containing identifiable yolk sac but no pole. MATERNAL: Adnexa: There is a 1.9 cm dilated vascular structure in the right adnexa adjacent to the right ovary. Maternal ovaries appear unremarkable. No free fluid seen in the pelvis. IMPRESSION: 1. Early intrauterine gestation without identifiable pole. Viability can not be confirmed 2. 1.9 cm dilated vascular structure in the right adnexa which could represent a dilated vessel or aneurysm. Attention on follow-up studies indicated.
--- NOTE | 2022-10-10 17:45 | PC.NURSE ---
called for us tech for transvaginal US
[2022-10-10 17:52] LABS: WBC,Urine Occasional #/hpf (0-3)
[2022-10-10 18:11] LABS: HCG,Quantitative 3622 mIU/ml (0-5.42)
[2022-10-10 19:11] VITALS: BP 122/85; PULSE 94; O2SAT 98
[2022-10-10 19:14] VITALS: BP 134/71; PULSE 89; RESP 14; TEMP 36.7; O2SAT 98
== END 2022-10-10 19:21 | disposition home or self-care (01) ==
PROVIDERS: Emergency Provider Emergency Medicine
DX: O26.891 Other specified pregnancy related conditions, first trimester (principal); R10.30 Lower abdominal pain, unspecified; Z3A.01 Less than 8 weeks gestation of pregnancy
CPT/HCPCS: 76817; 80053; 81001; 83690; 84702; 84703; 85025; 99285

== ENCOUNTER → 2022-10-12 12:17 | Outpatient (CLI) | payer OTHER, SELFPAY ==
[2022-10-12 14:31] LABS: HCG,Quantitative 5576 mIU/ml (0-5.42)
[2022-10-13 11:14] LABS: Progesterone 7.9 ng/mL (.)
== END ==
PROVIDERS: Visit Provider Obstetrics & Gynecology
DX: O26.891 Other specified pregnancy related conditions, first trimester (principal); R10.2 Pelvic and perineal pain
CPT/HCPCS: 36415; 84144; 84702

== ENCOUNTER 2022-10-13 18:38 | Emergency (ER) | payer OTHER, SELFPAY ==
[2022-10-13 18:38] VITALS: BP 152/108; PULSE 87; RESP 16; TEMP 37; O2SAT 99; BMI 18.8
[2022-10-13 19:59] LABS: Microscopic, Urine URINE MICROSCOPIC (MICROSCOPIC)
[2022-10-13 20:01] LABS: Appearance,Urine CLEAR (Clear); Bilirubin,Urine Negative (Negative); Blood, Urine Negative (Negative); Color,Urine YELLOW (Yellow); Glucose,Urine (UA) Negative (Negative); Ketones,Urine Negative (Negative); Leukocyte Esterase,Urine Negative (Negative); Nitrate,Urine Negative (Negative); PH,Urine 6.5 (5.0-8.5); Protein,Urine Negative (Negative); Specific Gravity, Urine <= 1.005 (1.005-1.030); Urobilinogen,Urine 0.2 EU/dl (0.2)
[2022-10-13 20:10] LABS: Basophils # 0.1 K/mm3 (0-0.2); Basophils % 0.8 % (0.1-2.0); Eosinophils # 0.1 K/mm3 (0.0-0.4); Eosinophils % 0.5 % (0.1-12.0); Hematocrit 43.3 % (37.0-47.0); Hemoglobin 14.4 g/dL (12.2-16.2); Lymphocytes # 1.7 K/mm3 (0.7-4.5); Lymphocytes % 11.6 % (10-50); Mean Corpuscular HGB Conc 33.3 g/dL (31.8-35.4); Mean Corpuscular Volume 93.2 fl (81-99); Mean Platelet Volume 7.8 fl (7.4-10.4); Monocytes # 0.6 K/mm3 (0.1-1.0); Monocytes % 4.3 % (1.7-9.3); Neutrophils # 12.1 K/mm3 (1.8-7.8); Neutrophils % 82.8 % (37.0-80.0); Platelet Count 409 K/mm3 (142-424); Red Blood Count 4.65 M/mm3 (4.20-5.40); Red Cell Distribution Width 13.6 % (11.5-17.5); White Blood Count 14.6 K/mm3 (4.8-10.8)
[2022-10-13 20:12] LABS: Chloride 108 mmol/L (98-107); Potassium 3.3 mmoL/L (3.5-5.1); Sodium 142 mmol/L (136-145)
[2022-10-13 20:14] LABS: Amylase 67 U/L (30-110); Blood Urea Nitrogen 7 mg/dl (7-17); Creatinine Clearance Estimated 165 mL/min (50-200); Estimated Glomerular Filt Rate 196 ml/min (>60); GFR (African American) 237 ML/MIN (>60)
[2022-10-13 20:15] LABS: Alanine Aminotransferase 20 U/L (12-78); Albumin Level 4.9 g/dl (3.5-5.0); Albumin/Globulin Ratio 1.4 (1.1-1.8); Alkaline Phosphatase 40 U/L (38-126); Anion Gap 13.3 mEq/L (5-15); Aspartate Amino Transferase 26 U/L (14-36); Bilirubin,Total 0.4 mg/dl (0.2-1.3); Calcium 9.4 mg/dl (8.4-10.2); Carbon Dioxide 24 mmol/L (22.0-30.0); Globulin 3.4 g/dL (1.3-3.2); Glucose 129 mg/dl (74-100); Lipase 110 U/L (23-300); Total Protein,Serum 8.3 g/dl (6.3-8.2)
[2022-10-13 20:30] VITALS: BP 115/84; PULSE 88; O2SAT 100
[2022-10-13 20:30] LABS: HCG,Quantitative 7678 mIU/ml (0-5.42)
[2022-10-13 21:00] VITALS: BP 121/91; PULSE 103; O2SAT 99
--- NOTE | 2022-10-13 22:15 | PC.NURSE ---
Rounded on pt. Pt notified that we have critical cases at this time and we will be back with them as soon as possible.
--- NOTE | 2022-10-13 22:44 | HMH.EDABDPAI ---
Discharge Plan Disposition Patient Disposition: Home, Self-Care Condition: Good Prescriptions Prescriptions: No Action omeprazole 20 mg capsule,delayed release(DR/EC) 20 mg PO hydroxyzine pamoate 25 mg capsule 25 mg PO DAILY Label Comments: TAKE 1 CAPSULE BY MOUTH TWICE DAILY NEEDED FOR ANXIETY progesterone micronized [Prometrium] 200 mg capsule 200 mg vaginal HS 30 Days Qty: 30 0RF vit no.[id number] 1 EACH tablet 1 tab PO DAILY Referrals Follow up/Referrals: Humaira Jacobs APRN [Primary Care Provider] - See instructions Clinical Impressions Clinical Impression: , Pelvic pain affecting in first trimester, antepartum Instructions Patient Instructions: DI for Abdominal Pain -- Early Discharge ED Provider: Yissel (ED)Jack Abdominal Pain HPI General Chief Complaint: Abdominal Pain Stated Complaint: abd pain Time Seen by Provider: 10/13/22 22:44 Mode of Arrival: Ambulatory Source of Information: Patient and Medical Record Limitations: No Limitations Description of Symptoms (Recalled from ER Triage Doc. by RN): pt c/o lower abd pain that started this afternoon. pt states she is 6 weeks pregant. pt denies any bleeding. was seen in er on tuesday night then seen by dr limon on tuesday. History of Present Illness HPI narrative: lower pelvic pain with early preg but no vaginal bleeding Onset (ago): hour(s) Consistency: now resolved Severity: moderate Associated symptoms: denies other symptoms Related Data Home Medications Medication Instructions Recorded Confirmed hydroxyzine pamoate 25 mg capsule 25 mg PO DAILY Anxiety 03/19/21 10/11/22 vits no.126-ferrous fum 1 tab PO DAILY Supplement 09/22/21 10/11/22 28 mg iron-folic acid 800 mcg tablet omeprazole 20 mg capsule,delayed 20 mg PO 03/03/22 10/11/22 release Previous Rx's Medication Instructions Recorded progesterone micronized 200 mg 200 mg vaginal HS 30 days #30 caps 10/13/22 capsule (Prometrium) Allergies Allergy/AdvReac Type Severity Reaction Status Date / Time No Known Drug Intolerances Allergy Unknown NA Verified 10/11/22 16:21 [facility] Disclaimer: The information contained in this section may have been updated after the patient was seen, as this information can be updated by other users. Medical History History of recurrent miscarriages Pelvic pain affecting in first trimester, antepartum Surgical History Hx of section Hx of dilation and curettage Family History Other Cancer Diabetes Hypertension Stroke Social History Smoking Status: Current every day smoker tobacco type: e-cigarettes second hand exposure: No alcohol intake: never substance use type: denies use current occupational status: unemployed Travel in the last 8 weeks: None household members: family housing: house current occupational exposures/hazards: No caffeine: Yes ROS Obtained: Yes All systems reviewed & no additional complaints except as documented Physical Exam General General appearance: alert Head Head exam: normocephalic Eye Eye exam: Present PERRL and EOMI ENT ENT exam: Present mucous membranes moist Neck Neck exam: Present trachea midline Respiratory Respiratory exam: Absent respiratory distress Cardiovascular Cardiovascular exam: Present regular rate Abdominal Exam Abdominal exam: Present soft; Absent tenderness Extremities Exam Extremities exam: Present full ROM Neurological Exam Neurological exam: Present alert, oriented X3 and CN II-XII intact; Absent motor sensory deficit Psychiatric Psychiatric exam: Present normal affect Skin Skin exam: Present intact Medical Decision Making
[2022-10-13 22:55] VITALS: BP 134/74; PULSE 90; RESP 18; TEMP 37; O2SAT 99
== END 2022-10-13 23:01 | disposition home or self-care (01) ==
PROVIDERS: Emergency Medicine; Emergency Provider Emergency Medicine; PCP Nurse Practitioner Family
DX: O26.891 Other specified pregnancy related conditions, first trimester (principal); R10.2 Pelvic and perineal pain; Z3A.01 Less than 8 weeks gestation of pregnancy; O26.21 Pregnancy care for patient with recurrent pregnancy loss, first trimester; O99.331 Smoking (tobacco) complicating pregnancy, first trimester; Z83.3 Family history of diabetes mellitus; Z82.49 Family history of ischemic heart disease and other diseases of the circulatory system; F17.290 Nicotine dependence, other tobacco product, uncomplicated; Z80.9 Family history of malignant neoplasm, unspecified
CPT/HCPCS: 80053; 81001; 82150; 83690; 84702; 85025; 99285

== ENCOUNTER → 2022-10-18 10:58 | Outpatient (CLI) | payer OTHER, SELFPAY ==
--- NOTE | 2022-10-18 10:59 | US_ITS ---
FINAL REPORT TECHNIQUE: Sonographic images of the pelvis were obtained. CLINICAL HISTORY: confirm , follow up to Rt. ovarian cyst COMPARISON: 10/10/2022 FINDINGS: The uterus is anteverted and anteflexed. Within the endometrial cavity, there is a gestational sac. Gestational sac measures 1.21 cm which correlates to a 6 week, 0 day gestation. There is a pole. [place]-rump length measures 7.01 mm which correlates to a 6 weeks, 5 days gestation. Cardiac activity is present. Heart rate measures 125 bpm. The myometrium and cervix are otherwise unremarkable. The right ovary measures 2.2 x 1.5 x 2.0 cm. there is a 2 cm cyst. This appears similar to prior. Additionally, there is a prominent vessel adjacent to the right ovary which appear similar to prior exam. The left ovary measures 2.6 x 1.9 x 1.6 cm. there is a small hypoechoic lesion within the left ovary, likely hemorrhagic follicle. Color imaging to the ovaries is normal. There is free fluid. IMPRESSION: Single, living, intrauterine gestation. Stable right ovarian cyst. Prominent vascular structure adjacent to the right ovary, unchanged from prior exam. This could represent a dilated vessel. Aneurysm difficult to exclude. Continued follow-up recommended. Authenticated and ERN
== END ==
PROVIDERS: Visit Provider Obstetrics & Gynecology
DX: N83.201 Unspecified ovarian cyst, right side (principal); Z3A.01 Less than 8 weeks gestation of pregnancy
CPT/HCPCS: 76801

== ENCOUNTER → 2022-11-22 10:29 | Outpatient (CLI) | payer OTHER, SELFPAY ==
[2022-11-22 11:38] LABS: Basophils # 0.1 K/mm3 (0-0.2); Basophils % 0.4 % (0.1-2.0); Eosinophils # 0.1 K/mm3 (0.0-0.4); Lymphocytes # 2.5 K/mm3 (0.7-4.5); Lymphocytes % 21.7 % (10-50); Mean Corpuscular HGB Conc 31.3 g/dL (31.8-35.4); Mean Corpuscular Hemoglobin 27.5 pg (27.0-31.2); Mean Corpuscular Volume 87.8 fl (81-99); Mean Platelet Volume 7.5 fl (7.4-10.4); Monocytes # 0.5 K/mm3 (0.1-1.0); Monocytes % 4.4 % (1.7-9.3); Neutrophils # 8.5 K/mm3 (1.8-7.8); Neutrophils % 72.4 % (37.0-80.0); Platelet Count 510 K/mm3 (142-424); Red Blood Count 3.98 M/mm3 (4.20-5.40); Red Cell Distribution Width 14.5 % (11.5-17.5); White Blood Count 11.7 K/mm3 (4.8-10.8)
[2022-11-23 09:31] LABS: Rubella Antibodies, IgG <0.90 index (Immune >0.99)
[2022-11-25 23:48] LABS: HIV Screen 4th Generation wRfx NON REACTIVE; Hepatitis C Antibody NON REACTIVE
[2022-11-25 23:49] LABS: Hepatitis B Surface Antigen NEGATIVE; Rapid Plasma Reagin Ab Titer NON REACTIVE
== END ==
PROVIDERS: Visit Provider Obstetrics & Gynecology
DX: Z34.90 Encounter for supervision of normal pregnancy, unspecified, unspecified trimester (principal)
CPT/HCPCS: 36415; 85025; 86593; 86703; 86762; 86850; 87340; 87380; G0432

== ENCOUNTER → 2023-01-20 14:08 | Outpatient (CLI) | payer OTHER, SELFPAY ==
--- NOTE | 2023-01-20 14:14 | US_ITS ---
FINAL REPORT CLINICAL HISTORY: 20 w anatomy scan FINDINGS: There is a single live intrauterine gestation. Presentation is variable, breech at the end of the exam. The cervix is closed and measures 5.8 cm. Placenta is anterior, grade 1. Cardiac activity is confirmed. The heart rate is 149 beats per minute. movement is noted. Three-vessel cord with satisfactory umbilical cord insertion. Four-chamber heart is noted. brain and ventricles are unremarkable. Chest and diaphragm are unremarkable. ABDOMEN: Both kidneys are unremarkable. Stomach is unremarkable. SPINE: No anomalies identified. Both arms and legs noted. AMNIOTIC FLUID: Appropriate amount. MEASUREMENTS: ULTRASOUND AGE: 19 weeks 6 days. GESTATION AGE: 20 weeks 2 days. ESTIMATED WEIGHT: 309 g GROWTH PERCENTILE: 18 % BPD: 4.69 cm consistent with 20 weeks 2 days. OFD: 5.84 cm consistent with 20 weeks 1 days. HC: 16.64 cm consistent with 19 weeks 3 days. AC: 14.97 cm consistent with 20 weeks 2 days. FL: 2.98 cm consistent with 19 weeks 2 days. CEREBELLUM: 2.02 cm consistent with 20 weeks 4 days. HUMERUS: 3.00 cm consistent with 19 weeks 6 days. HC/AC: 1.11 CI: 80% FL/BPD: 64% FL/AC: 20% IMPRESSION: Single living IUP with an ultrasound age of 19 weeks 6 days. No anomalies identified. Reviewed, Interpreted and Dictated by Andrew Last III, MD Transcribed by Dorinda Jara Authenticated and [facility]
== END ==
PROVIDERS: PCP Obstetrics & Gynecology; Visit Provider Obstetrics & Gynecology
DX: Z34.90 Encounter for supervision of normal pregnancy, unspecified, unspecified trimester (principal); Z3A.20 20 weeks gestation of pregnancy
CPT/HCPCS: 76811

== ENCOUNTER → 2023-03-16 10:09 | Outpatient (CLI) | payer OTHER, SELFPAY ==
[2023-03-16 10:28] LABS: Basophils % 0.2 % (0.1-2.0); Eosinophils # 0.1 K/mm3 (0.0-0.4); Eosinophils % 0.4 % (0.1-12.0); Hematocrit 31.7 % (37.0-47.0); Hemoglobin 9.7 g/dL (12.2-16.2); Lymphocytes # 1.7 K/mm3 (0.7-4.5); Lymphocytes % 11.1 % (10-50); Mean Corpuscular HGB Conc 30.5 g/dL (31.8-35.4); Mean Corpuscular Hemoglobin 22.6 pg (27.0-31.2); Mean Corpuscular Volume 74.1 fl (81-99); Mean Platelet Volume 7.9 fl (7.4-10.4); Monocytes # 0.7 K/mm3 (0.1-1.0); Monocytes % 4.4 % (1.7-9.3); Neutrophils # 13.1 K/mm3 (1.8-7.8); Neutrophils % 83.9 % (37.0-80.0); Platelet Count 421 K/mm3 (142-424); Red Blood Count 4.28 M/mm3 (4.20-5.40); Red Cell Distribution Width 17.2 % (11.5-17.5); White Blood Count 15.6 K/mm3 (4.8-10.8)
[2023-03-16 10:31] LABS: MANUAL DIFFERENTIAL MANUAL DIFFERENTIAL (MANUAL DIFF)
[2023-03-16 10:35] LABS: Glucose,Fasting 88 mg/dl (74-100)
[2023-03-16 11:47] LABS: Hypochromasia 2+; Lymphocytes % 11 % (10-50); Monocytes % 3 % (2-9); Neutrophils % 86 % (42-76); Total Cells Counted 100
[2023-03-16 11:49] LABS: Microcytosis 1+; Platelet Estimate Slight Increase
[2023-03-16 12:13] LABS: Glucose 1 Hour 102 mg/dL (74-100)
== END ==
PROVIDERS: PCP Nurse Practitioner Family; Visit Provider Obstetrics & Gynecology
DX: Z34.92 Encounter for supervision of normal pregnancy, unspecified, second trimester (principal)
CPT/HCPCS: 36415; 82951; 85007; 85025

== ENCOUNTER → 2023-03-21 13:20 | Outpatient (CLI) | payer OTHER, SELFPAY ==
--- NOTE | 2023-03-21 13:25 | US_ITS ---
PROCEDURE: US OB FOLLOW UP CLINICAL INDICATION: sga COMPARISON: Anatomical scan done 01/20/2023. FINDINGS: Transabdominal sonographic images were obtained of the pelvis. From her established due date she is 28weeks 6days. The following parameters are obtained: Viable fetus in the breech presentation with an anterior placenta grade 1. Average ultrasound age is Average 27weeks 2days Estimated due date by ultrasound is 06/18/2023. Estimated weight is 2 pounds 5 ounces, 1048 grams. Fourthpercentile. heart rate: 134bpm bpm. BPD: 27weeks 4days OFD: 27weeks 4days HC: 27 weeks 1 day AC: 27 weeks 3 days FL: 27 weeks 2 days HC/AC: 1.09 Cephalic index: 0.75 FL/BPD: 0.75 FL/AC: 0.22 Amniotic fluid index: 10.46cm Qualitative AFV: 2 breathing movements: 2 Gross body movements: 2 Tone: 2 Biophysical profile score: 8 Doppler evaluation of the umbilical artery: SD ratio: 2.37 Resistive index: 0.58 No obvious anomalies evident. profile seen, nasion, stomach, bladder, kidneys, four chamber heart, LVOT, RVOT, three-vessel cord appear normal. Placenta anterior grade 1. Cervix: 4.8 cm IMPRESSION: 1. Viable fetus in the breech presentation with an anterior placenta grade 1. The fluid is within normal limits. 2. Globally small for gestational age with the fetus being approximately 10 days behind on its growth. Fourth percentile. 3. Amniotic fluid and SD ratios are normal. Baby is active. Dictated by: Antonio Grijalva MD 03/21/2023 16:42 Antonio Grijalva MD in OV 03/21/2023 16:42
== END ==
PROVIDERS: PCP Nurse Practitioner Family; Visit Provider Obstetrics & Gynecology
DX: O36.5930 Maternal care for other known or suspected poor fetal growth, third trimester, not applicable or unspecified (principal); Z3A.29 29 weeks gestation of pregnancy
CPT/HCPCS: 76816; 76819; 76820

== ENCOUNTER 2023-05-17 10:31 | Inpatient (IN) | payer OTHER, SELFPAY ==
[2023-05-17] VITALS (8 sets, daily range): BP systolic 111–147; BP diastolic 51–96; PULSE 75–90; RESP 15–19; TEMP 36.6–36.8; O2SAT 98–100; BMI 23.6; BMI 23.3
[2023-05-17 11:46] LABS: Basophils % 0.1 % (0.1-2.0); Eosinophils # 0.1 K/mm3 (0.0-0.4); Eosinophils % 0.6 % (0.1-12.0); Hematocrit 37.4 % (37.0-47.0); Hemoglobin 11.5 g/dL (12.2-16.2); Lymphocytes # 1.6 K/mm3 (0.7-4.5); Mean Corpuscular HGB Conc 30.8 g/dL (31.8-35.4); Mean Corpuscular Hemoglobin 26.1 pg (27.0-31.2); Mean Corpuscular Volume 84.7 fl (81-99); Mean Platelet Volume 8.7 fl (7.4-10.4); Monocytes # 0.6 K/mm3 (0.1-1.0); Monocytes % 3.8 % (1.7-9.3); Neutrophils # 12.5 K/mm3 (1.8-7.8); Neutrophils % 84.6 % (37.0-80.0); Platelet Count 437 K/mm3 (142-424); Red Blood Count 4.42 M/mm3 (4.20-5.40); Red Cell Distribution Width 20.7 % (11.5-17.5); White Blood Count 14.8 K/mm3 (4.8-10.8)
[2023-05-17 11:54] LABS: Chloride 110 mmol/L (98-107); Potassium 3.7 mmoL/L (3.5-5.1); Sodium 137 mmol/L (136-145)
[2023-05-17 11:56] LABS: Alanine Aminotransferase 20 U/L (12-78); Aspartate Amino Transferase 28 U/L (14-36); Blood Urea Nitrogen 5 mg/dl (7-17); Creatinine Clearance Estimated 164 mL/min (50-200); Estimated Glomerular Filt Rate 150 ml/min (>60); GFR (African American) 182 ML/MIN (>60)
[2023-05-17 11:57] LABS: Albumin Level 3.5 g/dl (3.5-5.0); Albumin/Globulin Ratio 1.1 (1.1-1.8); Alkaline Phosphatase 132 U/L (38-126); Anion Gap 12.7 mEq/L (5-15); Bilirubin,Total 0.3 mg/dl (0.2-1.3); Calcium 8.6 mg/dl (8.4-10.2); Carbon Dioxide 18 mmol/L (22.0-30.0); Globulin 3.1 g/dL (1.3-3.2); Glucose 87 mg/dl (74-100); Total Protein,Serum 6.6 g/dl (6.3-8.2)
--- NOTE | 2023-05-17 12:28 | EXP.OB.APHP ---
OB - H&P: HPI Antepartum History of Present Illness Chief complaint: Scheduled repeat History of present illness: Ms Rhoan Whtie is a 27 yo at 37 weeks who presents to [facility] L&D for scheduled repeat secondary to IUGR. Ultrasound with PDC 05/11 demonstrated EFW 15 %ile but significant AC lag, 3 %ile. BPP 04/12. PDC recommends delivery at 37 weeks. She has had good care. History of Present Criteria for establishing EDC:: based on 1st trimester US only care: good care Ultrasounds: normal mid trimester US Obstetrical complications: growth restriction Medical complications: none Labs Blood type: B (+) positive Rubella: nonimmune RPR/VDRL: nonreactive HBsAG: negative PFSH PFS Disclaimer: The information contained in this section may have been updated after the patient was seen, as this information can be updated by other users. Medical History (Updated 05/17/23 @ 12:32 by Sally Mortensen DO) 37 weeks gestation of Acute guttate psoriasis Anemia affecting , antepartum Asymmetric IUGR affecting , antepartum History of recurrent miscarriages Marijuana use during Pelvic pain affecting in first trimester, antepartum Request for sterilization Rubella non-immune status, antepartum Size of fetus inconsistent with dates in third trimester Surgical History Hx of section Hx of dilation and curettage Family History Other Cancer Diabetes Hypertension Stroke Social History Smoking Status: Current every day smoker tobacco type: e-cigarettes second hand exposure: No alcohol intake: never substance use type: denies use current occupational status: unemployed Travel in the last 8 weeks: Inside the [place] household members: family housing: house current occupational exposures/hazards: No caffeine: Yes Review of Systems Review of Systems Review of systems:: pertinent systems reviewed and negative unless documented below Meds Home Medications and Allergies Home Medications Medication Instructions Recorded Confirmed Type ferrous sulfate 325 mg (65 mg 325 mg PO DAILY #30 tabs 03/17/23 05/13/23 Rx iron) tablet vits no.126-ferrous fum 1 tab PO DAILY #30 tabs 03/17/23 05/13/23 Rx 28 mg iron-folic acid 800 mcg tablet (Classic ) buspirone 5 mg tablet 5 mg PO BID #30 tabs 05/13/23 05/13/23 Rx New Prescriptions to Start Prescriptions: Allergies Allergy/AdvReac Type Severity Reaction Status Date / Time No Known Drug Intolerances Allergy Unknown NA Verified 05/13/23 10:02 OB - H&P: Exam Physical Exam Vital signs: Temp Pulse Resp BP Pulse Ox O2 Del Method 98.2 F 87 16 138/51 L 99 Room Air 05/17/23 12:16 05/17/23 12:16 05/17/23 12:16 05/17/23 12:16 05/17/23 12:16 05/17/23 12:16 Constitutional no acute distress, thin and cooperative Routine HEENT Exam Head: Present normocephalic and atraumatic Eye: Absent conjunctivae pink ENT: Present mucous membranes moist Routine Neck Exam Present full ROM Routine Respiratory Exam Present CTA bilaterally and normal respiratory effort Routine Cardiovascular Exam Present RRR Routine Abdominal Exam Present soft (Gravid); Absent tenderness Routine Rectal Exam Patient deferred: visual exam Routine Exam Patient deferred: external exam Routine Extremities Exam Present full ROM; Absent edema or calf tenderness Routine Neurological Exam Present alert, oriented X3 and moving all extremities Routine Psychiatric Exam Present normal affect and cooperative Detailed Labor and Delivery Exam Baseline heart rate: 130 monitor accelerations: Present monitor decelerations: None intermediate variability: Moderate
[2023-05-17 13:27] LABS: Cord Blood PH 7.38 (7.35-7.45)
--- NOTE | 2023-05-17 13:52 | EXP.OP.NOTE ---
Date of procedure: 05/17/23 Pre-op Diagnosis:: 1. IUP at 37w0d 2. Asymmetric IUGR 3. Anemia in 4. Marijuana use in 5. History of x 1 6. Desires permanent sterilization Post-op Diagnosis:: 1. IUP at 37w0d 2. Asymmetric IUGR 3. Anemia in 4. Marijuana use in 5. History of x 1 6. Desires permanent sterilization Procedure performed:: 1. Repeat Low Transverse Section 2. Bilateral salpingectomy Surgeon:: Sally Mortensen DO Punch Press Operator(s):: Zeinab Garcia DO BENCH WORKER HELPER:: Austyn Rubin Anesthesia: spinal Estimated blood loss (mL): 400 Clinical Note:: Ms Rhona White is a 27 yo at 37 weeks 0 days who presents to [facility] L&D for scheduled repeat secondary to IUGR. Ultrasound with PDC 05/11 demonstrated EFW 15 %ile but significant AC lag, 3 %ile. BPP 04/12. PDC recommends delivery at 37 weeks. She has had good care. Operative findings:: 1. Live female baby, Urszula, weighing 5 lb 10 oz, APGARs 7, 9 2. Grossly normal appearing uterus, left fallopian tube and bilateral ovaries. Right fallopian tube surgically absent 3. Calcifications noted within placenta Operative note:: The risks, benefits and alternatives of the procedure were reviewed with the patient. Informed consent was obtained. Patient was taken to the operating room where spinal anesthesia was placed. The patient received 2 grams of Ancef preoperatively. Patient was placed in dorsal supine position with a leftward tilt. SCDs in place. Fowler catheter was inserted and draining clear urine prior to the start of the procedure. heart tones were obtained. Patient was then prepped and draped in normal sterile fashion. Allis clamp test was performed to ensure adequate anesthesia. A Pfannenstiel skin incision was made 2 cm above pubic symphysis, at superior edge of prior Pfannenstiel incision site. This was carried through to underlying layer of fascia. Fascia was incised in midline, extended laterally with Lazcano scissors. Superior aspect of fascial incision was grasped with two Pooja clamps, elevated up, and rectus muscle dissected off bluntly and sharply with Lazcano scissors. Inferior aspect of fascial incision was grasped with two Pooja clamps, elevated up, and rectus muscle dissected off bluntly and sharply with Lazcano scissors.The retcus muscle was then in the midline and the peritoneum was entered bluntly with a digit. Peritoneal incision was then extended superiorly and inferiorly with good visualization of the bladder. Sanjeev retractor was inserted. The lower uterine segment was incised in a transverse fashion. Light meconium stained amniotic fluid was noted. Head was delivered without difficulty. Remainder of body was delivered without difficulty. Mouth and nares were bulb suctioned. Spontaneous cry was noted. Delayed cord clamping was performed for 60 seconds. The umbilical cord was clamped and cut. The infant was handed to awaiting pediatric staff in stable condition. Dr. Moss was present. Apgars were 7(1 min), 9(5 min). Cord blood was obtained. Gentle traction on the umbilical cord and uterine fundal massage delivered the placenta. Placenta was intact. Placenta will be sent to pathology for review. Uterus was cleared of all clots and debris with a moist laparotomy sponge. Corners of the uterine incision were grasped with Allis clamps. The uterine incision was reapproximated with # 1 Vicryl suture in a running, locked stitch. Second layer of the same stitch was used to imbricate the incision. Hemostasis was noted. Posterior cul-de-sac was cleaned with moist laparotomy sponge. Gutters cleared of all clots and debris with a moist laparotomy sponge. Attention was then turned to the left fallopian tube, which was grasped with a Pearl clamp. Enseal device was used to clamp, ligate and transect the right mesosalpinx and fallopian tube at uterine cornua,. Same procedure was carried out on the contralateral
--- NOTE | 2023-05-17 14:16 | P.PNANES_ITS ---
[facility] Disclaimer: The information contained in this section may have been updated after the patient was seen, as this information can be updated by other users. Medical History (Updated 05/17/23 @ 12:32 by Sally Mortensen DO) 37 weeks gestation of Acute guttate psoriasis Anemia affecting , antepartum Asymmetric IUGR affecting , antepartum History of recurrent miscarriages Marijuana use during Pelvic pain affecting in first trimester, antepartum Request for sterilization Rubella non-immune status, antepartum Size of fetus inconsistent with dates in third trimester Surgical History Hx of section Hx of dilation and curettage Family History Other Cancer Diabetes Hypertension Stroke Social History Smoking Status: Current every day smoker tobacco type: e-cigarettes second hand exposure: No alcohol intake: never substance use type: denies use current occupational status: unemployed Travel in the last 8 weeks: [place] the [place] household members: family housing: house current occupational exposures/hazards: No caffeine: Yes [facility] Anesthesia Checklist Patient Identification Patient Identification: Arm Band Structural Data Admitted From: Inpatient Planned Operative Procedure/s: Primary C/S, BTL Consent for Planned Operative Procedure(s) Verified: Yes Verified Documents: Surgical Consent and History and Physical NPO Status Verified Time NPO: 00:00 Additional verifications Anesthesia Reactions: No Hx Blood Transfusions: No Blood Transfusion Reaction: No Airway Assessment Mallampati Score:: Class II C-Spine Mobility Assessed: Yes TMJ Mobility Assessed: Yes Dentition: Good Dentition Neurological Assessment Level of Consciousness: Awake and Alert Anesthesia Plan Anesthesia Risk discussed: Yes Anesthesia Plan: Verified ASA Class: II Anesthesia Type: Spinal (with Bilateral TAP block)
--- NOTE | 2023-05-17 14:17 | P.PNANES_ITS ---
[facility] Anesthesia Record Part I Anesthesia Record I Intake, IV Amount: 1,000 Hydration: Adequate Estimated blood loss (mL): 400 Urine output (mL): 600 Blood Products used (#): none Blood Pressure: 111/66 SaO2: 99 Pulse Rate: 90 Airway Patency: Patent Respiratory Rate: 16 Temperature: 98 F Patient is:: Awake and Stable Stable to PACU at:: 14:00
--- NOTE | 2023-05-17 15:10 | SUR.OPER ---
1311: Time of , viable female . Cord pH 7.38.
[2023-05-17 16:22] LABS: Microscopic,Cath URINE MICROSCOPIC (MICROSCOPIC)
[2023-05-17 16:48] LABS: Appearance,Urine/Cath CLEAR (Clear); Bilirubin,Cath Negative (Negative); Blood, Urine/Cath Negative (Negative); Color,Urine/Cath YELLOW (Yellow); Glucose,Urine/Cath (UA) Negative (Negative); Ketones,Urine/Cath 2+ (Negative); Leukocyte Esterase,Cath Negative (Negative); Nitrate,Cath Negative (Negative); Protein,Urine/Cath Negative (Negative); Specific Gravity, Urine/Cath 1.015 (1.005-1.030); Urobilinogen,Cath 0.2 EU/dl (0.2)
[2023-05-17 16:53] LABS: Amphetamine/Metha Screen,Urine Negative ng/ml (<1000)
[2023-05-17 16:54] LABS: Barbiturates Screen,Urine Negative ng/ml (<200); Benzodiazepines Screen,Urine Negative ng/ml (<200)
[2023-05-17 16:55] LABS: Cannabinoid Screen,Urine Negative ng/ml (<50)
[2023-05-17 16:56] LABS: Cocaine Screen,Urine Negative ng/ml (<300); Methadone Screen,Urine Negative ng/ml (<300)
[2023-05-17 16:57] LABS: Opiate Screen,Urine Negative ng/ml (<300); Phencyclidine Screen,Urine Negative ng/ml (<25)
[2023-05-17 16:59] LABS: Squamous Epithelial Ur./Cath Occasional #/hpf (0-5); WBC,Urine/Cath Occasional #/hpf (0-3)
[2023-05-18 00:40] VITALS: BP 137/88; PULSE 72; RESP 17; TEMP 36.6
[2023-05-18 07:11] LABS: Basophils % 0.3 % (0.1-2.0); Eosinophils % 0.3 % (0.1-12.0); Hematocrit 34.5 % (37.0-47.0); Hemoglobin 10.7 g/dL (12.2-16.2); Lymphocytes % 8.4 % (10-50); Mean Corpuscular HGB Conc 30.9 g/dL (31.8-35.4); Mean Corpuscular Hemoglobin 26.6 pg (27.0-31.2); Mean Corpuscular Volume 86.1 fl (81-99); Mean Platelet Volume 8.3 fl (7.4-10.4); Monocytes # 0.7 K/mm3 (0.1-1.0); Monocytes % 6.1 % (1.7-9.3); Neutrophils # 9.6 K/mm3 (1.8-7.8); Neutrophils % 84.8 % (37.0-80.0); Platelet Count 292 K/mm3 (142-424); Red Blood Count 4.01 M/mm3 (4.20-5.40); Red Cell Distribution Width 20.7 % (11.5-17.5); White Blood Count 11.3 K/mm3 (4.8-10.8)
--- NOTE | 2023-05-18 07:28 | EXP.ACUTE.PN ---
Subjective *Date: 05/18/23 *Time: 07:28 Medical Exam Vital signs and Labs for Last 24 Hours: Vital Signs Temp Pulse Pulse Pulse Resp BP BP 05/18/23 00:40 97.8 F 72 17 05/17/23 21:23 86 05/17/23 20:22 98.0 F 75 18 05/17/23 14:30 98 F 82 19 146/96 H 05/17/23 14:20 98 F 78 15 140/90 05/17/23 14:10 98 F 87 15 130/83 05/17/23 14:00 98 F 90 16 111/66 05/17/23 12:16 98.2 F 87 16 138/51 L 05/17/23 14:17 98 F 90 16 111/66 BP Pulse Ox O2 Del Method 05/18/23 00:40 137/88 05/17/23 21:23 136/84 05/17/23 20:22 147/95 H 98 Room Air 05/17/23 14:30 100 Room Air 05/17/23 14:20 99 Room Air 05/17/23 14:10 99 Room Air 05/17/23 14:00 99 Room Air 05/17/23 12:16 99 Room Air 05/17/23 14:17 Intake and Output 05/17/23 05/17/23 05/18/23 15:59 23:59 07:59 Intake Total 1000 / 1000 Balance 1000 / 1000 Intake: Intake, Total IV Amount 1000 / 1000 Other: Weight 132 lb Laboratory Results - last 24 hr 05/17/23 11:15: WBC 14.8 H, RBC 4.42, Hgb 11.5 L, Hct 37.4, MCV 84.7, MCH 26.1 L, MCHC 30.8 L, RDW 20.7 H, Plt Count 437 H, MPV 8.7, Neut % (Auto) 84.6 H, Lymph % (Auto) 11.0, [place] % (Auto) 3.8, Eos % (Auto) 0.6, Baso % (Auto) 0.1, Neut # (Auto) 12.5 H, Lymph # (Auto) 1.6, [place] # (Auto) 0.6, Eos # (Auto) 0.1, Baso # (Auto) 0.0, Sodium 137, Potassium 3.7, Chloride 110 H, Carbon Dioxide 18 L, Anion Gap 12.7, BUN 5 L, Creatinine 0.50 L, Estimated Creat Clear 164, Estimated GFR 150, Est GFR ( Amer) 182, Glucose 87, Calcium 8.6, Total Bilirubin 0.3, AST 28, ALT 20, Alkaline Phosphatase 132 H, Total Protein 6.6, Albumin 3.5, Globulin 3.1, Albumin/Globulin Ratio 1.1, Blood Type B Positive, Antibody Screen Negative, Crossmatch (AHG) See Detail 05/17/23 13:15: Cord ABG pH 7.38 05/17/23 13:30: Urine Color Yellow, Urine Appearance Clear, Urine pH 7.0, Ur Specific [place] 1.015, Urine Protein Negative, Urine Glucose (UA) Negative, Urine Ketones 2+, Urine Blood Negative, Urine Nitrate Negative, Urine Bilirubin Negative, Urine Urobilinogen 0.2, Ur Leukocyte Esterase Negative, Urine RBC None, Urine WBC Occasional, Ur Squamous Epith Cells Occasional, Urine Bacteria None, Urine Opiates Screen Negative, Urine Methadone Screen Negative, Ur Barbituates Screen Negative, Ur Phencyclidine Scrn Negative, Ur Amphetamines Screen Negative, U Benzodiazepines Scrn Negative, Urine Cocaine Screen Negative, U Marijuana (THC) Screen Negative 05/18/23 06:25: WBC 11.3 H, RBC 4.01 L, Hgb 10.7 L, Hct 34.5 L, MCV 86.1, MCH 26.6 L, MCHC 30.9 L, RDW 20.7 H, Plt Count 292 D, MPV 8.3, Neut % (Auto) 84.8 H, Lymph % (Auto) 8.4 L, [place] % (Auto) 6.1, Eos % (Auto) 0.3, Baso % (Auto) 0.3, Neut # (Auto) 9.6 H, Lymph # (Auto) 1.0, [place] # (Auto) 0.7, Eos # (Auto) 0.0, Baso # (Auto) 0.0 I & O for Labs for Last 24 Hours: Intake & Output 05/15/23 05/16/23 05/17/23 05/18/23 23:59 23:59 23:59 23:59 Intake Total 1000 / 1000 Balance 1000 / 1000 Weight 132 lb Head: Present atraumatic and normocephalic ENT: Present normal exam Neck: Present full ROM Respiratory: Present CTA bilaterally and normal respiratory effort Cardiac: Present Reg Rate and Rhythm GI: Present soft; Absent distention or tenderness Comments:: Uterine fundus firm and below umbilicus, pfannenstiel incision clean/intact, steri strips in place with scant blood present on steri strips Rectal (female): Present deferred (female): Present deferred Extremities: Present full ROM Neuro: Present alert, awake, oriented x 3 and moves all extremities Assessment and Plan *Assessment and plan (1) 37 weeks gestation of : Status: Acute Category: Medical Code(s): Z3A.37 - 37 weeks gestation of (2) S/P : Status: Acute Category: Surgical Code(s): Z98.891 - History of uterine scar from previous surgery (3) Asymmetric IUGR affecting , antepartum:
--- NOTE | 2023-05-18 07:39 | EXP.ANES.II ---
[facility] Anesthesia Record Part II Anesthesia Record Part II Discharge Time: 14:30 Destination: Obstetric PACU nurse assessment reviewed?: Yes Patient Condition:: Good Anesthesia Complications:: None Swallowing reflex intact?: Yes Airway Patency: Patent Cyanosis?: No Blood Pressure: 146/96 SaO2: 100 Respiratory Rate: 19 Pulse Rate: 82 Temperature: 98 F Mental Status: Alert & Oriented Pain level:: 0 Nausea and/or vomitting:: None Intake, IV Amount: 0 Hydration: Adequate
[2023-05-18 07:40] VITALS: BP 146/96; PULSE 82; RESP 19; TEMP 36.6; O2SAT 100
[2023-05-18 07:49] VITALS: BP 163/85; PULSE 68; RESP 18; TEMP 36.8; O2SAT 99
[2023-05-18 10:10] VITALS: BP 148/82
--- NOTE | 2023-05-18 12:48 | EXP.DC.SUM ---
General Admission date:: 05/17/23 Discharge date: 05/18/23 HPI HPI HPI: POD # 1 s/p RLTCS with bilateral salpingectomy Sitting in bed. She is breast and formula feeding. Pain controlled with medication. Appropriate lochia. Tolerating regular diet. Voiding without difficulty and passing flatus. Ambulating well ad diomedes. Denies fever/chills, chest pain and shortness of breath. No headaches or vision changes. No swelling. Baby is getting transferred to for respiratory distress. Rhona is requesting to be discharge to go with her baby. Hospital Course Hospital Course Hospital Course: Ms Rhona White is a 27 yo at 37 weeks 0 days who presents to [facility] for scheduled repeat secondary to IUGR. Ultrasound with [facility]C 05/11 demonstrated EFW 15 %ile but significant AC lag, 3 %ile. BPP 04/12. PDC recommends delivery at 37 weeks. She has had good care. She is complete with childbearing and desires permanent sterilization. She had a repeat with bilateral salpingectomy on 05/17/23. She delivered a live female baby, Urszula, weighing 5 lb 10 oz, APGARs 7, 9. EBL 400 mL. She did well postoperatively. Pain controlled with medication. Appropriate lochia. Tolerating regular diet. Voiding without difficulty and passing flatus. Ambulating well ad diomedes. Denies fever/chills, chest pain and shortness of breath. No headaches or vision changes. No swelling. Baby is getting transferred to for respiratory distress. Rhona is requesting to be discharge to go with her baby. Ambulating well ad diomedes. No lower extremity edema. No calf tenderness. Discharted on POD # 1. Exam Data for Last 24 hours Vital signs and Labs for Last 24 Hours: Temp Pulse Resp BP Pulse Ox O2 Del Method 98.3 F 68 18 148/82 H 99 Room Air 05/18/23 07:49 05/18/23 07:49 05/18/23 07:49 05/18/23 10:10 05/18/23 07:49 05/18/23 07:49 Laboratory Results - last 24 hr 05/17/23 11:15: Blood Type B Positive, Antibody Screen Negative, Crossmatch (AHG) See Detail 05/17/23 13:15: Cord ABG pH 7.38 05/17/23 13:30: Urine Color Yellow, Urine Appearance Clear, Urine pH 7.0, Ur Specific [place] 1.015, Urine Protein Negative, Urine Glucose (UA) Negative, Urine Ketones 2+, Urine Blood Negative, Urine Nitrate Negative, Urine Bilirubin Negative, Urine Urobilinogen 0.2, Ur Leukocyte Esterase Negative, Urine RBC None, Urine WBC Occasional, Ur Squamous Epith Cells Occasional, Urine Bacteria None, Urine Opiates Screen Negative, Urine Methadone Screen Negative, Ur Barbituates Screen Negative, Ur Phencyclidine Scrn Negative, Ur Amphetamines Screen Negative, U Benzodiazepines Scrn Negative, Urine Cocaine Screen Negative, U Marijuana (THC) Screen Negative 05/18/23 06:25: WBC 11.3 H, RBC 4.01 L, Hgb 10.7 L, Hct 34.5 L, MCV 86.1, MCH 26.6 L, MCHC 30.9 L, RDW 20.7 H, Plt Count 292 D, MPV 8.3, Neut % (Auto) 84.8 H, Lymph % (Auto) 8.4 L, [place] % (Auto) 6.1, Eos % (Auto) 0.3, Baso % (Auto) 0.3, Neut # (Auto) 9.6 H, Lymph # (Auto) 1.0, [place] # (Auto) 0.7, Eos # (Auto) 0.0, Baso # (Auto) 0.0 I & O for Last 24 hours: Intake & Output 05/15/23 05/16/23 05/17/23 05/18/23 23:59 23:59 23:59 23:59 Intake Total 1000 / 1000 0 / 0 Balance 1000 / 1000 0 / 0 Weight 132 lb Constitutional Constitutional: no acute distress *Routine HEENT Exam Head: Present normocephalic and atraumatic Eye: Absent conjunctivae pink ENT: Present mucous membranes moist *Routine Neck Exam Neck: Present full ROM *Routine Respiratory Exam Respiratory: Present CTA bilaterally and normal respiratory effort *Routine Cardiovascular Exam Cardiovascular: Present RRR *Routine Abdominal Exam Abdominal: Present soft; Absent normoactive bowel sounds, tenderness or distended Comments: Uterine fundus firm and below umbilicus, pfannenstiel incision clean/dry/intact with steri strips *Routine Rectal Exam Patient deferred: visual exam *Routine Exam Patient deferred: external exam *Routine Extremities Exam Extremit
--- NOTE | 2023-05-18 13:34 | SW/DCPLANNER ---
Addendum entered by Aviva Valera 05/24/23 15:34: Infant cord screen results have been faxed to [facility] / [phone]. Original Note: I received a referral on this patient regarding positive THC use during . Patient tested positive for THC on 11/19/22, 02/25/23 and 04/08/23. Patient was negative at admission on 05/17/23. Per OB nursing staff inford urine/cord screen has been collected. Infant will transfer to today. I did call Nubia / [phone] and updated regarding THC use during . Nubia stated that she will take over case once arrives at .
== END 2023-05-18 12:00 | disposition home or self-care (01) | DRG 784 ==
PROVIDERS: Admitting Provider Obstetrics & Gynecology; Visit Provider Obstetrics & Gynecology
PROC: 10D00Z1 Extraction of Products of Conception, Low, Open Approach (ICD-10-PCS; principal; 2023-05-17 12:00)
PROC: 10D00Z1 Extraction of Products of Conception, Low, Open Approach (ICD-10-PCS; CPT 58700; 2023-05-17 12:00)
DX: O34.211 Maternal care for low transverse scar from previous cesarean delivery (principal); O99.324 Drug use complicating childbirth; Z3A.37 37 weeks gestation of pregnancy; Z37.0 Single live birth; O36.5930 Maternal care for other known or suspected poor fetal growth, third trimester, not applicable or unspecified; O99.334 Smoking (tobacco) complicating childbirth; F17.290 Nicotine dependence, other tobacco product, uncomplicated; F12.90 Cannabis use, unspecified, uncomplicated; Z30.2 Encounter for sterilization
CPT/HCPCS: 59514; 58611; 36415; 59025; 80053; 80305; 81001; 82800; 85025; 86850; 88302; 88307; 94761; 96374; C9290; G0283; J2405